=== PATIENT | male | born 1960 | race Caucasian/White ===

== ENCOUNTER → 2019-06-12 09:54 | Outpatient (CLI) | payer BC, SELFPAY ==
--- NOTE | 2019-06-12 10:06 | CT_ITS ---
PROCEDURE: CT CHEST W CON CLINCAL INDICATION: CHEST PAIN,SOB,TOBACCO USE Chest pain, shortness of breath, tobacco abuse COMPARISON: No exams were available for comparison TECHNIQUE: IV Contrast: 75ml Optiray 350 Axial images obtained with sagittal and coronal reformats. All CT scans at the facility use one or more dose reduction, viz: automated exposure control, ma/kV adjustment per patient size (including targeted exams where dose is matched to indication, i.e. head), or iterative reconstruction technique. FINDINGS: HEART AND MEDIASTINAL STRUCTURES: Coronary artery calcifications. Normal heart size. No evidence of aortic aneurysm or dissection or central pulmonary embolus. No mediastinal or hilar mass or adenopathy. LUNGS AND PLEURAL SPACES: There is some minimal dependent changes in the lung bases posteriorly. No lobar consolidation or collapse. Calcified granuloma is present in the left lower lobe. No suspicious pulmonary nodules. No effusions. There is a 2.5 by 1.5 cm isodense collection in the right cardiophrenic angle suggesting a small pericardial cyst. BONY STRUCTURES: Degenerative changes thoracic spine UPPER ABDOMEN: 3 cm left adrenal mass with fat density consistent with an adrenal myelolipoma ADDITIONAL FINDINGS: No other significant abnormalities. IMPRESSION: 1. No acute finding. 2. 2.5 cm right cardiophrenic angle lesion which may be due to a pericardial cyst. 3. Coronary artery calcification. 4. 3 cm left adrenal mass consistent with an adrenal myelolipoma Dictated by: Ryan Mireles MD 06/13/2019 07:32 Electronically signed by Ryan Mireles MD in [place] 06/13/2019 07:32
[2019-06-12 10:34] LABS: Blood Urea Nitrogen 14 mg/dl (9-20); Estimated Glomerular Filt Rate 116 ml/min (>60); GFR (African American) 140 ML/MIN (>60)
== END ==
PROVIDERS: PCP Family Medicine; Visit Provider Family Medicine
DX: R07.9 Chest pain, unspecified (principal); R06.02 Shortness of breath; F17.210 Nicotine dependence, cigarettes, uncomplicated
CPT/HCPCS: 36415; 71260; 82565; 84520; 94060; Q9967

== ENCOUNTER → 2019-06-22 09:51 | Outpatient (CLI) | payer BC, SELFPAY ==
--- NOTE | 2019-06-22 10:03 | FL_ITS ---
PROCEDURE: FL UPPER GI W AIR CLINICAL INDICATION: CHEST PAIN COMPARISON: CT CHEST W CON from 06/12/2019 TECHNIQUE: FLUOROSCOPY TIME : 1 minutes and 40 seconds FINDINGS: The esophagus, stomach, and duodenum have an unremarkable appearance.There is no evidence of hiatal hernia. No ulcer or mass evident. No mucosal abnormalities apparent. There is normal peristalsis. There is a small duodenal diverticulum IMPRESSION: Small duodenal diverticulum otherwise negative air-contrast upper Dictated by: Ryan Mireles MD 06/22/2019 14:33 Electronically signed by Ryan Mireles MD in [facility] 06/22/2019 14:33
== END ==
PROVIDERS: PCP Family Medicine; Visit Provider Family Medicine
DX: R07.9 Chest pain, unspecified (principal)
CPT/HCPCS: 74246

== ENCOUNTER → 2019-11-05 16:10 | Outpatient (CLI) | payer BC, SELFPAY ==
[2019-11-05 18:47] LABS: Coronavirus 19 IgG Antibody Negative (Negative); Coronavirus 19 IgM Antibody Negative (Negative)
== END ==
PROVIDERS: Visit Provider Family Medicine
DX: Z01.84 Encounter for antibody response examination (principal)
CPT/HCPCS: 36415; 86328

== ENCOUNTER → 2020-07-20 15:43 | Outpatient (CLI) | payer BC, SELFPAY ==
--- NOTE | 2020-07-20 15:58 | XR_ITS ---
PROCEDURE: XR HAND RT MIN 3V CLINICAL INDICATION: PAIN IN RT HAND COMPARISON: No exams were available for comparison FINDINGS: No fracture or dislocation. No lytic or blastic change. There is normal mineralization. There is a small calcific density along the ulnar aspect the 3rd metacarpophalangeal joint and along the radial aspect of the 1st interphalangeal joint. Minimal osteoarthritic changes are present at the 1st metacarpophalangeal joint and 3rd metacarpophalangeal joint. Other findings:None. IMPRESSION: Mild degenerative changes. No acute finding Dictated by: Ryan Mireles MD 07/20/2020 16:51 Ryan Mireles MD in [facility] 07/20/2020 16:51
--- NOTE | 2020-07-20 15:58 | XR_ITS ---
PROCEDURE: XR HAND LT MIN 3V CLINICAL INDICATION: PAIN IN LT HAND COMPARISON: No exams were available for comparison FINDINGS: There is an old fracture of the tuft of the distal phalanx of the thumb. Minimal osteoarthritic changes are present at the 1st and 3rd metacarpophalangeal joint. The joint spaces are well-preserved. No significant degenerative/arthritic changes. No erosive changes evident. Other findings:None. IMPRESSION: Minimal degenerative changes with old fracture of the tuft of the distal phalanx of the thumb Dictated by: Ryan Mireles MD 07/20/2020 16:53 Ryan Mireles MD in [place] 07/20/2020 16:53
== END ==
PROVIDERS: PCP Family Medicine; Visit Provider Family Medicine
DX: M79.641 Pain in right hand (principal); M79.642 Pain in left hand
CPT/HCPCS: 73130

== ENCOUNTER → 2020-11-18 14:42 | Outpatient (CLI) | payer OTHER, SELFPAY ==
[2020-11-18 15:25] LABS: Hematocrit 50.2 % (42.0-52.0); Hemoglobin 16.8 g/dL (14.1-18.0)
[2020-11-18 17:09] LABS: Alanine Aminotransferase 58 U/L (12-78); Albumin Level 4.5 g/dl (3.5-5.0); Alkaline Phosphatase 64 U/L (38-126); Aspartate Amino Transferase 35 U/L (17-59); Bilirubin,Direct 0.1 mg/dl (0.0-0.4); Bilirubin,Indirect 0.2 mg/dL (0.0-0.9); Bilirubin,Total 0.3 mg/dl (0.2-1.3); Bilirubin,Unconjugated 0.2 mg/dL (0.0-1.1); Total Protein,Serum 7.2 g/dl (6.3-8.2)
[2020-11-18 17:40] LABS: Prostate Specific Ag Screen 0.5 ng/ml (0.0-4.0)
[2020-11-25 15:11] LABS: Testosterone, Total, LC/MS 221.2 ng/dL (264.0-916.0); Testosterone,Free 2.8 pg/mL (7.2-24.0)
== END ==
PROVIDERS: Visit Provider Urology
DX: E29.1 Testicular hypofunction (principal); Z12.5 Encounter for screening for malignant neoplasm of prostate; Z79.899 Other long term (current) drug therapy
CPT/HCPCS: 36415; 80076; 84402; 84403; 85014; 85018; G0103

== ENCOUNTER → 2021-03-28 10:43 | Outpatient (CLI) | payer OTHER, SELFPAY ==
[2021-03-29 06:09] LABS: Covid-19 Nasal PCR Sendout Lex POSITIVE
== END ==
PROVIDERS: PCP Family Medicine; Visit Provider Nurse Practitioner
DX: U07.1 COVID-19 (principal)
CPT/HCPCS: C9803; U0004; U0005

== ENCOUNTER 2021-04-21 11:27 | Emergency (ER) | payer OTHER, SELFPAY ==
[2021-04-21 13:18] VITALS: BP 154/98; PULSE 93; RESP 19; TEMP 36.7; O2SAT 96; BMI 32.1
[2021-04-21 13:27] LABS: UTC Strep Screen (Rapid) Negative (Negative)
--- NOTE | 2021-04-21 13:51 | HMH.EDUTC ---
[facility] Disposition Clinical Impression: Acute bronchitis Qualifiers: Bronchitis organism: unspecified organism Qualified Code(s): J20.9 - Acute bronchitis, unspecified Sinusitis Qualifiers: Sinusitis location: unspecified location Chronicity: acute Recurrence: non-recurrent Qualified Code(s): J01.90 - Acute sinusitis, unspecified Disposition: Home, Self-Care Condition on Discharge: Good Instructions: Sinusitis, DI for Sinusitis Additional Instructions: Drink plenty of fluids. Take tylenol or ibuprofen for pain or fever. Take the medications as directed. Follow up with your regular doctor. GO TO THE ER FOR ANY WORSENING SYMPTOMS Don't start the oral steroids until tomorrow, since you had the shot here today. Prescriptions: Amoxicillin/Potassium Clav [Augmentin 875-125 Tablet] 1 tab PO Q12H 10 Days #20 tab Transmission Status: Received by [id number] Benzonatate [Benzonatate 100mg cap] 100 mg PO TIDP PRN #30 cap PRN Reason: Cough Transmission Status: Received by [id number] methylPREDNISolone [Medrol] 4 mg PO DIRECTED 6 Days #21 packet Transmission Status: Received by [id number] Referrals: Kenny Guerrero MD [Primary Care Provider] - Time of Disposition: 14:44 Medical Decision Making - Medical Records Medical records reviewed: No: I reviewed the patient's medical records. - Earnest Inquiry Pt receiving controlled substance: No Vital Signs: 04/21/21 13:18 04/21/21 14:52 Temperature 98.1 F 98.8 F Temperature Source Oral Pulse Rate 93 H Pulse Rate [Left] 93 H Respiratory Rate 19 19 Blood Pressure 154/98 H Blood Pressure [Right Arm] 154/98 H Blood Pressure Mean [Right Arm] 116 02 Sat by Pulse Oximetry 96 - Lab Data Lab results reviewed: Yes: I reviewed the patient's lab results. Lab Results 04/21/21 13:16: Strep Scn Rapid Clinic Negative Orders (Tests/Meds): ED MEDICATIONS Discontinued Medications Generic Name Dose Route Start Last Admin Trade Name Freq PRN Reason Stop Dose Admin Ceftriaxone Sodium 1 gm 04/21/21 14:16 04/21/21 14:32 Ceftriaxone 1gm Vial IM 04/21/21 14:17 1 gm ONCE ONE Administration Lidocaine HCl 0 ml 04/21/21 14:16 04/21/21 14:32 Lidocaine 1% 5ml Pf Vial IM 04/21/21 14:17 2 ml ONCE ONE Administration Methylprednisolone Sodium Succinate 125 mg 04/21/21 14:16 04/21/21 14:32 Methylprednisolone Sod Succ 125mg Vial IM 04/21/21 14:17 125 mg ONCE ONE Administration [facility] HPI - General Stated complaint: congestion, cough, sore throat Time Seen by Provider: 04/21/21 13:51 Mode of Arrival: Ambulatory Source of Information: Patient Limitations: No Limitations Description of Symptoms (Recalled from Triage Doc. by RN): pt c/o nasal congestion, sore throat and chest congestion. pt was positive for covid on 03/28/21. pt states he is just not getting any better. HEENT Symptoms (Recalled from RN notes): Yes Resp Symptoms (Recalled from RN notes): Yes Skin Symptoms (Recalled from RN notes): No MS Symptoms (Recalled from RN notes): No Functional Status (Recalled from RN notes): wnl - Related Data Home Medications Medication Instructions Recorded Confirmed amlodipine 10 mg tablet 10 mg PO DAILY 11/18/20 11/18/20 aspirin 81 mg tablet,delayed 81 mg PO DAILY 11/18/20 11/18/20 release cholecalciferol (vitamin D3) 125 125 mcg PO DAILY 11/18/20 11/18/20 mcg (5,000 unit) tablet diclofenac sodium 75 mg 75 mg PO BID 11/18/20 11/18/20 tablet,delayed release famotidine 40 mg tablet 40 mg PO DAILY 11/18/20 11/18/20 hydralazine 25 mg tablet 25 mg PO BID tab 11/18/20 11/18/20 hydrochlorothiazide 12.5 mg tablet 12.5 mg PO DAILY 11/18/20 11/18/20 levothyroxine 200 mcg capsule 200 mcg PO DAILY 11/18/20 11/18/20 lorazepam 0.5 mg tablet 0.5 mg PO BID PRN 11/18/20 11/18/20 magnesium aspartate HCl 61 mg (615 61 mg PO DAILY 11/18/20 11/18/20 mg) tablet,delayed release oxycodone 7
--- NOTE | 2021-04-21 13:52 | XR_ITS ---
FINAL REPORT CLINICAL HISTORY: chest congestion. 03/28/21 covid positive. sore throat FINDINGS: TWO VIEWS OF THE CHEST The heart is normal in size. The mediastinum is unremarkable. The lungs are underinflated. There is scarring at the bases. There is no pneumothorax. IMPRESSION: No acute cardiopulmonary process. Reviewed, Interpreted and Dictated by Johnathon Solitario MD Transcribed by Felicia Savage Authenticated by Johnathon Solitario MD on 04/21/2021 03:40:[address] [facility]
[2021-04-21 14:52] VITALS: BP 154/98; PULSE 93; RESP 19; TEMP 37.1
== END 2021-04-21 14:53 | disposition home or self-care (01) ==
PROVIDERS: Emergency Provider Nurse Practitioner Family; PCP Family Medicine
DX: J20.9 Acute bronchitis, unspecified (principal); J01.90 Acute sinusitis, unspecified; E03.9 Hypothyroidism, unspecified; E11.9 Type 2 diabetes mellitus without complications
CPT/HCPCS: 71046; 87880; 96372; 99202; G0463; J0696

== ENCOUNTER → 2021-05-19 14:11 | Outpatient (CLI) | payer OTHER, SELFPAY ==
[2021-05-19 14:15] LABS: MANUAL DIFFERENTIAL MANUAL DIFFERENTIAL (MANUAL DIFF)
[2021-05-19 14:43] LABS: Basophils # 0.1 K/mm3 (0-0.2); Basophils % 1.6 % (0.1-2.0); Eosinophils # 0.2 K/mm3 (0.0-0.4); Eosinophils % 3.5 % (0.1-12.0); Hematocrit 48.3 % (42.0-52.0); Hemoglobin 15.7 g/dL (14.1-18.0); Lymphocytes # 2.2 K/mm3 (0.7-4.5); Lymphocytes % 31.8 % (10-50); Mean Corpuscular HGB Conc 32.5 g/dL (31.8-35.4); Mean Corpuscular Hemoglobin 30.6 pg (27.0-31.2); Mean Corpuscular Volume 94.4 fl (80-94); Monocytes # 0.4 K/mm3 (0.1-1.0); Monocytes % 5.8 % (1.7-9.3); Neutrophils # 3.9 K/mm3 (1.8-7.8); Neutrophils % 57.3 % (37.0-80.0); Platelet Count 377 K/mm3 (142-424); Red Blood Count 5.11 M/mm3 (4.60-6.20); Red Cell Distribution Width 14.6 % (11.5-17.5); White Blood Count 6.8 K/mm3 (4.8-10.8)
[2021-05-19 15:15] LABS: Alanine Aminotransferase 57 U/L (12-78); Aspartate Amino Transferase 38 U/L (17-59); Bilirubin,Unconjugated 0.1 mg/dL (0.0-1.1)
[2021-05-19 15:16] LABS: Albumin Level 4.2 g/dl (3.5-5.0); Total Protein,Serum 6.7 g/dl (6.3-8.2)
[2021-05-19 15:18] LABS: Eosinophils % 4 % (0-3); Lymphocytes % 31 % (10-50); Monocytes % 7 % (2-9); Neutrophils % 57 % (42-76); Total Cells Counted 100
[2021-05-19 15:19] LABS: Platelet Estimate Normal; RBC Morphology Normal
[2021-05-19 16:13] LABS: Alkaline Phosphatase 62 U/L (38-126); Bilirubin,Total 0.4 mg/dl (0.2-1.3)
[2021-05-19 16:38] LABS: Bilirubin,Direct 0.2 mg/dl (0.0-0.4); Bilirubin,Indirect 0.2 mg/dL (0.0-0.9)
[2021-06-02 11:18] LABS: Testosterone, Total, LC/MS 429.3 ng/dL (264.0-916.0); Testosterone,Free 8.5 pg/mL (6.6-18.1)
== END ==
PROVIDERS: Visit Provider Urology
DX: E29.1 Testicular hypofunction (principal)
CPT/HCPCS: 36415; 80076; 84402; 84403; 85007; 85014; 85018; 85048; 85049

== ENCOUNTER → 2021-11-21 15:25 | Outpatient (CLI) | payer OTHER, SELFPAY ==
[2021-11-21 15:31] LABS: MANUAL DIFFERENTIAL MANUAL DIFFERENTIAL (MANUAL DIFF)
[2021-11-21 16:58] LABS: Basophils # 0.1 K/mm3 (0-0.2); Basophils % 1.2 % (0.1-2.0); Eosinophils # 0.2 K/mm3 (0.0-0.4); Eosinophils % 2.4 % (0.1-12.0); Hematocrit 54.2 % (42.0-52.0); Hemoglobin 17.5 g/dL (14.1-18.0); Lymphocytes % 26.6 % (10-50); Mean Corpuscular HGB Conc 32.2 g/dL (31.8-35.4); Mean Corpuscular Hemoglobin 30.3 pg (27.0-31.2); Mean Platelet Volume 7.9 fl (7.4-10.4); Monocytes # 0.5 K/mm3 (0.1-1.0); Monocytes % 6.6 % (1.7-9.3); Neutrophils # 4.7 K/mm3 (1.8-7.8); Neutrophils % 63.2 % (37.0-80.0); Platelet Count 319 K/mm3 (142-424); Red Blood Count 5.76 M/mm3 (4.60-6.20); Red Cell Distribution Width 14.9 % (11.5-17.5); White Blood Count 7.4 K/mm3 (4.8-10.8)
[2021-11-21 17:18] LABS: Alanine Aminotransferase 39 U/L (12-78); Albumin Level 4.4 g/dl (3.5-5.0); Alkaline Phosphatase 64 U/L (38-126); Aspartate Amino Transferase 33 U/L (17-59); Bilirubin,Unconjugated 0.3 mg/dL (0.0-1.1); Total Protein,Serum 6.9 g/dl (6.3-8.2)
[2021-11-21 17:23] LABS: Bilirubin,Indirect 0.1 mg/dL (0.0-0.9); Bilirubin,Total 0.1 mg/dl (0.2-1.3)
[2021-11-21 17:49] LABS: Prostate Specific Ag Screen 0.4 ng/ml (0.0-4.0)
[2021-11-21 20:51] LABS: Lymphocytes % 30 % (10-50); Monocytes % 4 % (2-9); Neutrophils % 66 % (42-76); Total Cells Counted 100
[2021-11-21 20:53] LABS: Platelet Estimate Normal; RBC Morphology Normal
[2021-11-25 22:32] LABS: Testosterone, Total, LC/MS 156.3 ng/dL (264.0-916.0); Testosterone,Free 1.8 pg/mL (6.6-18.1)
== END ==
PROVIDERS: PCP Family Medicine; Visit Provider Urology
DX: E29.1 Testicular hypofunction (principal); Z12.5 Encounter for screening for malignant neoplasm of prostate
CPT/HCPCS: 36415; 80076; 84402; 84403; 85007; 85014; 85018; 85048; 85049; G0103

== ENCOUNTER → 2022-01-04 10:30 | Outpatient (CLI) | payer OTHER, SELFPAY ==
[2022-01-04 14:51] LABS: Alanine Aminotransferase 39 U/L (12-78); Albumin Level 4.7 g/dl (3.5-5.0); Albumin/Globulin Ratio 1.9 (1.1-1.8); Alkaline Phosphatase 76 U/L (38-126); Aspartate Amino Transferase 31 U/L (17-59); Bilirubin,Total 0.4 mg/dl (0.2-1.3); Blood Urea Nitrogen 15 mg/dl (9-20); Calcium 10.2 mg/dl (8.4-10.2); Carbon Dioxide 22 mmol/L (22.0-30.0); Chloride 106 mmol/L (98-107); Chol/HDL Ratio 5.8 (1-3.5); Cholesterol 233 mg/dl (140-200); Estimated Glomerular Filt Rate 137 ml/min (>60); GFR (African American) 166 ML/MIN (>60); Globulin 2.5 g/dL (1.3-3.2); Glucose 163 mg/dl (74-100); HDL Cholesterol 40 mg/dl (40-60); Sodium 143 mmol/L (136-145); Total Protein,Serum 7.2 g/dl (6.3-8.2); Triglycerides 369 mg/dl (30-150); VLDL Cholesterol 74 mg/dL (0-40)
[2022-01-04 14:55] LABS: Basophils # 0.1 K/mm3 (0-0.2); Eosinophils # 0.2 K/mm3 (0.0-0.4); Eosinophils % 3.8 % (0.1-12.0); Hematocrit 54.6 % (42.0-52.0); Hemoglobin 17.5 g/dL (14.1-18.0); Lymphocytes # 1.8 K/mm3 (0.7-4.5); Lymphocytes % 31.9 % (10-50); Mean Corpuscular HGB Conc 32.1 g/dL (31.8-35.4); Mean Corpuscular Hemoglobin 30.8 pg (27.0-31.2); Mean Platelet Volume 9.1 fl (7.4-10.4); Monocytes # 0.5 K/mm3 (0.1-1.0); Monocytes % 8.7 % (1.7-9.3); Neutrophils % 54.5 % (37.0-80.0); Platelet Count 325 K/mm3 (142-424); Red Blood Count 5.69 M/mm3 (4.60-6.20); Red Cell Distribution Width 14.8 % (11.5-17.5); White Blood Count 5.5 K/mm3 (4.8-10.8)
[2022-01-04 15:08] LABS: 25-OH Vitamin D, Total 45.3 ng/mL (30-100)
[2022-01-04 15:22] LABS: Thyroid Stimulating Hormone 8.05 uIU/mL (0.465-4.68)
[2022-01-04 15:38] LABS: Anion Gap 19.4 mEq/L (5-15); Potassium 4.4 mmoL/L (3.5-5.1)
[2022-01-04 15:44] LABS: Microalbumin/Creatinine Ratio 70.2
[2022-01-04 15:46] LABS: Creatinine,Urine Random 43 mg/dL (Not Estab.)
[2022-01-04 16:09] LABS: Hemoglobin A1C 6.9 % (4.0-6.0)
== END ==
PROVIDERS: PCP Physician Assistant; Visit Provider Physician Assistant
DX: E11.9 Type 2 diabetes mellitus without complications (principal); I10 Essential (primary) hypertension; E03.9 Hypothyroidism, unspecified; E78.5 Hyperlipidemia, unspecified; E66.3 Overweight; Z68.33 Body mass index [BMI] 33.0-33.9, adult; Z79.84 Long term (current) use of oral hypoglycemic drugs
CPT/HCPCS: 80053; 80061; 82043; 82306; 82570; 83036; 84443; 85025

== ENCOUNTER 2022-04-23 10:52 | Emergency (ER) | payer OTHER, SELFPAY ==
[2022-04-23 11:35] VITALS: BP 147/88; PULSE 103; RESP 21; TEMP 36.7; O2SAT 96; BMI 31.6
[2022-04-23 11:48] LABS: UTC Strep Screen (Rapid) Negative (Negative)
--- NOTE | 2022-04-23 12:04 | EXP.UTC ---
Discharge Plan Disposition Patient Disposition: Home, Self-Care Condition: Good Prescriptions Prescriptions: New benzonatate 100 mg capsule 100 mg PO TID PRN (Reason: cough) Qty: 30 0RF amoxicillin-pot clavulanate 875-125 mg Tablet 1 tab PO Q12H Qty: 20 0RF No Action aspirin 81 mg tablet,delayed release (DR/EC) 81 mg PO DAILY sildenafil (pulm.hypertension) 20 mg tablet 20 mg PO ONCE PRN (Reason: sexual activity) Rx Instructions: administer doses at least 4-6 hours apart oxycodone-acetaminophen 7.5-325 mg tablet 1 tab PO Q6H tamsulosin 0.4 mg capsule 0.4 mg PO DAILY testosterone cypionate 200 mg/mL oil 150 mg IM Q2W Qty: 10 5RF hydrochlorothiazide 12.5 mg tablet 12.5 mg PO DAILY Qty: 90 3RF irbesartan 150 mg tablet 300 mg PO DAILY Qty: 90 3RF lorazepam 0.5 mg tablet 0.5 mg PO BID PRN (Reason: anxiety) Qty: 30 0RF atorvastatin 10 mg tablet 10 mg PO DAILY Qty: 90 3RF Farxiga 5 mg tablet 5 mg PO DAILY Qty: 60 0RF metformin 500 mg tablet extended release 24 hr 1,000 mg PO ONCE 90 Days Qty: 180 3RF Jardiance 25 mg tablet 25 mg PO DAILY Qty: 90 3RF hydralazine 25 mg tablet 25 mg PO BID 90 Days Qty: 180 3RF amlodipine 10 mg tablet 10 mg PO DAILY Qty: 90 3RF levothyroxine 50 mcg tablet 50 mcg PO DAILY Qty: 90 3RF levothyroxine 200 mcg tablet 200 mcg PO DAILY Qty: 90 3RF Paxlovid (EUA) 300 mg (150 mg x 2)-100 mg tablets,dose pack See Rx Instructions PO .COMPLEX Qty: 30 0RF Rx Instructions: take TWO 150 mg tablets of nirmatrelvir with ONE 100 mg tablet of ritonavir twice daily for 5 days PO Referrals Follow up/Referrals: Fide Bazan PA [Primary Care Provider] - See instructions Activity Restrictions/Add. Instructions Additional Instructions/Restrictions: Start antibiotic tomorrow Be sure to complete entire prescription even if feeling better Monitor temp. Tylenol every 4 hours as needed and / or ibuprofen every 6 hours as needed ( As long as your primary care physician has told you that it ok to take both. For fever/aches/pains ER if no less than 101 despite Tylenol or Motrin Humidifier/vaporizer or hot steamy shower *Tessalon Perles will not cause drowsiness but use at bedtime to help stop cough so that you may get some rest. You blood sugar may be elevated for the next couple of days due to SoluMedrol but should return to normal Follow up IMMEDIATELY for new or worsening of symptoms OR no noticeable improvement over the next 48-72 hours. 911 immediately for any life threatening symptoms such as chest pain or difficulty breathing Clinical Impressions Clinical Impression: Bronchitis Sinusitis Qualifiers: Sinusitis location: unspecified location Chronicity: unspecified Qualified Code(s): J32.9 - Chronic sinusitis, unspecified Instructions Patient Instructions: Sinusitis, Acute Bronchitis, DI for Sinusitis Discharge ED Provider: Loren Lovell [facility] [place] HPI General Stated complaint: sore throat,chest congestion,drainage Mode of Arrival: Ambulatory Source of Information: Patient Limitations: No Limitations Time Seen by Provider: 04/23/22 12:04 Description of Symptoms (Recalled from Triage Doc. by RN): PATIENT C/O CONGESTION, SINUS DRAINAGE, SORE THROAT AND COUGH THAT STARTED ON SATURDAY HEENT Symptoms (Recalled from RN notes): Yes Resp Symptoms (Recalled from RN notes): Yes Skin Symptoms (Recalled from RN notes): No MS Symptoms (Recalled from RN notes): No Functional Status (Recalled from RN notes): WNL History of Present Illness Provider Complaint: Patient states that he has been having sinus issues for over a week but on Saturday they got worse States that he is having sinus congestion and drainage in the back of his throat and his throat is sore like he may have strep throat States that today he was feeling worse like he was trying to set up b
[2022-04-23 12:33] VITALS: BP 147/88; PULSE 103; RESP 21; TEMP 36.7; O2SAT 96
== END 2022-04-23 12:46 | disposition home or self-care (01) ==
PROVIDERS: Emergency Provider Nurse Practitioner; PCP Physician Assistant
DX: J40 Bronchitis, not specified as acute or chronic (principal); J32.9 Chronic sinusitis, unspecified
CPT/HCPCS: 87880; 96372; 99212; 99214; G0463; J0696

== ENCOUNTER 2022-09-26 11:31 | Emergency (ER) | payer OTHER, SELFPAY ==
[2022-09-26 11:48] VITALS: BP 134/77; PULSE 93; RESP 16; TEMP 36.8; O2SAT 98; BMI 30.8
--- NOTE | 2022-09-26 11:50 | EXP.UTC ---
Discharge Plan Disposition Patient Disposition: Home, Self-Care Condition: Good Prescriptions Prescriptions: New mupirocin 2 % ointment 1 applic topical TID 7 Days Qty: 15 0RF methylprednisolone 4 mg Tablets,Dose Pack 4 mg PO DIRECTED Qty: 21 0RF amoxicillin-pot clavulanate 875-125 mg Tablet 1 tab PO Q12H Qty: 20 0RF No Action aspirin 81 mg tablet,delayed release (DR/EC) 81 mg PO DAILY oxycodone-acetaminophen 7.5-325 mg tablet 1 tab PO Q6H tamsulosin 0.4 mg capsule 0.4 mg PO DAILY lorazepam 0.5 mg tablet 0.5 mg PO BID PRN (Reason: anxiety) Qty: 30 0RF gabapentin 300 mg capsule 300 mg PO DAILY oxybutynin chloride 10 mg tablet extended release 24hr 10 mg PO DAILY Patient Comments: TAKE 1 TABLET BY MOUTH ONCE DAILY sildenafil (pulm.hypertension) 20 mg tablet 20 mg PO DAILY Qty: 90 1RF atorvastatin 10 mg tablet 10 mg PO DAILY hydralazine 25 mg tablet 25 mg PO BID amlodipine 10 mg tablet 10 mg PO DAILY levothyroxine 50 mcg tablet 50 mcg PO DAILY levothyroxine 200 mcg tablet 200 mcg PO DAILY irbesartan 150 mg tablet See Rx Instructions .ROUTE .COMPLEX Rx Instructions: Take 2 tablets by mouth once daily testosterone cypionate 200 mg/mL oil 150 mg IM Q2W metformin 500 mg tablet extended release 24 hr 1,000 mg PO ONCE hydrochlorothiazide 12.5 mg tablet 12.5 mg PO DAILY Farxiga 5 mg tablet 5 mg PO DAILY Jardiance 25 mg tablet 25 mg PO DAILY Referrals Follow up/Referrals: Fide Bazan PA [Primary Care Provider] - See instructions Activity Restrictions/Add. Instructions Additional Instructions/Restrictions: Drink plenty of fluids. Take tylenol or ibuprofen for pain or fever. Take the medications as directed. Follow up with your regular doctor. GO TO THE ER FOR ANY WORSENING SYMPTOMS Clinical Impressions Clinical Impression: Sinusitis, Bronchitis Instructions Patient Instructions: Sinusitis, Acute Bronchitis, DI for Acute Bronchitis Discharge ED Provider: Issa Ochoa [facility] [place] HPI General Stated complaint: sinus drainage Time Seen by Provider: 09/26/22 11:49 History of Present Illness Provider Complaint: He states that for the past 5 days he has had sinus and chest congestion. He has had a productive cough with yellowish sputum. He has had a very runny nose and sinus drainage. Related Data Home Medications Medication Instructions Recorded Confirmed aspirin 81 mg tablet,delayed 81 mg PO DAILY heart health 11/18/20 09/26/22 release oxycodone-acetaminophen 7.5 mg-325 1 tab PO Q6H Chronic Pain 08/30/21 09/26/22 mg tablet tamsulosin 0.4 mg capsule 0.4 mg PO DAILY bph 08/30/21 09/26/22 gabapentin 300 mg capsule 300 mg PO DAILY Pain 08/02/22 09/26/22 oxybutynin chloride 10 mg 10 mg PO DAILY bladder 08/02/22 09/26/22 tablet,extended release 24 hr amlodipine 10 mg tablet 10 mg PO DAILY htn 09/26/22 09/26/22 atorvastatin 10 mg tablet 10 mg PO DAILY Cholesterol 09/26/22 09/26/22 dapagliflozin propanediol 5 mg 5 mg PO DAILY dm 09/26/22 09/26/22 tablet (Farxiga) empagliflozin 25 mg tablet 25 mg PO DAILY dm 09/26/22 09/26/22 (Jardiance) hydralazine 25 mg tablet 25 mg PO BID htn 09/26/22 09/26/22 hydrochlorothiazide 12.5 mg tablet 12.5 mg PO DAILY Edema 09/26/22 09/26/22 irbesartan 150 mg tablet See Rx Instructions .Route 09/26/22 09/26/22 .COMPLEX htn levothyroxine 200 mcg tablet 200 mcg PO DAILY Supplement 09/26/22 09/26/22 levothyroxine 50 mcg tablet 50 mcg PO DAILY Supplement 09/26/22 09/26/22 metformin 500 mg tablet,extended 1,000 mg PO ONCE dm 09/26/22 09/26/22 release 24 hr testosterone cypionate 200 mg/mL 150 mg IM Q2W hormone replacement 09/26/22 09/26/22 intramuscular oil Previous Rx's Medication Instructions Recorded lorazepam 0.5 mg tablet 0.5 mg PO BID PRN anxiety #30 tabs 01/04/22 sildenafil (pulm.hy
[2022-09-26 12:23] VITALS: BP 134/77; PULSE 93; RESP 16; TEMP 36.8
== END 2022-09-26 12:26 | disposition home or self-care (01) ==
PROVIDERS: Emergency Provider Nurse Practitioner Family; PCP Physician Assistant
DX: J20.9 Acute bronchitis, unspecified (principal); J01.90 Acute sinusitis, unspecified; I10 Essential (primary) hypertension; E11.9 Type 2 diabetes mellitus without complications; E03.9 Hypothyroidism, unspecified; Z79.84 Long term (current) use of oral hypoglycemic drugs; Z87.891 Personal history of nicotine dependence
CPT/HCPCS: 99212; 99214; G0463

== ENCOUNTER 2023-04-30 18:41 | Outpatient (CLI) | payer BC, SELFPAY ==
[2023-04-30 18:18] LABS: Basophils # 0.1 K/mm3 (0-0.2); Basophils % 0.7 % (0.1-2.0); Eosinophils # 0.2 K/mm3 (0.0-0.4); Eosinophils % 2.1 % (0.1-12.0); Hematocrit 55.1 % (42.0-52.0); Hemoglobin 17.5 g/dL (14.1-18.0); Lymphocytes # 2.4 K/mm3 (0.7-4.5); Lymphocytes % 33.2 % (10-50); Mean Corpuscular HGB Conc 31.8 g/dL (31.8-35.4); Mean Corpuscular Hemoglobin 31.5 pg (27.0-31.2); Mean Corpuscular Volume 98.9 fl (80-94); Mean Platelet Volume 8.5 fl (7.4-10.4); Monocytes # 0.5 K/mm3 (0.1-1.0); Neutrophils # 4.1 K/mm3 (1.8-7.8); Neutrophils % 56.9 % (37.0-80.0); Platelet Count 299 K/mm3 (142-424); Red Blood Count 5.57 M/mm3 (4.60-6.20); White Blood Count 7.3 K/mm3 (4.8-10.8)
[2023-04-30 18:41] LABS: Alanine Aminotransferase 36 U/L (12-78); Albumin Level 4.5 g/dl (3.5-5.0); Alkaline Phosphatase 61 U/L (38-126); Anion Gap 13.5 mEq/L (5-15); Aspartate Amino Transferase 28 U/L (17-59); Bilirubin,Total 0.4 mg/dl (0.2-1.3); Blood Urea Nitrogen 13 mg/dl (9-20); Calcium 9.9 mg/dl (8.4-10.2); Carbon Dioxide 25 mmol/L (22.0-30.0); Chloride 105 mmol/L (98-107); Chol/HDL Ratio 4.7 (1-3.5); Cholesterol 154 mg/dl (140-200); Estimated Glomerular Filt Rate 114 ml/min (>60); GFR (African American) 138 ML/MIN (>60); Globulin 2.2 g/dL (1.3-3.2); Glucose 158 mg/dl (74-100); HDL Cholesterol 33 mg/dl (40-60); Potassium 4.5 mmoL/L (3.5-5.1); Sodium 139 mmol/L (136-145); Total Protein,Serum 6.7 g/dl (6.3-8.2); Triglycerides 262 mg/dl (30-150); VLDL Cholesterol 52 mg/dL (0-40)
[2023-04-30 18:48] LABS: 25-OH Vitamin D, Total 43.1 ng/mL (30-100)
[2023-04-30 18:56] LABS: Direct LDL Cholesterol 89.26 mg/dL (100-129)
[2023-04-30 19:05] LABS: Microalbumin/Creatinine Ratio 22.6
[2023-04-30 19:08] LABS: Creatinine,Urine Random 65 mg/dL (Not Estab.)
[2023-04-30 19:13] LABS: Prostate Specific Ag Screen 0.4 ng/ml (0.0-4.0); Thyroid Stimulating Hormone 1.44 uIU/mL (0.465-4.68)
[2023-05-02 11:18] LABS: Testosterone,Total 456 ng/dL (264-916)
== END 2023-04-30 23:59 ==
LOC: LAB.DROPOF 18:41
PROVIDERS: PCP Physician Assistant; Visit Provider Physician Assistant
DX: E11.9 Type 2 diabetes mellitus without complications (principal); E34.8 Other specified endocrine disorders; M54.50 Low back pain, unspecified; E78.5 Hyperlipidemia, unspecified; E03.9 Hypothyroidism, unspecified; I10 Essential (primary) hypertension; E66.9 Obesity, unspecified; Z68.31 Body mass index [BMI] 31.0-31.9, adult; Z79.899 Other long term (current) drug therapy; Z12.5 Encounter for screening for malignant neoplasm of prostate; Z79.84 Long term (current) use of oral hypoglycemic drugs
CPT/HCPCS: 80053; 80061; 82043; 82306; 82570; 83036; 84403; 84443; 85025; G0103